=== PATIENT | male | born 1980 | race Caucasian/White ===

== ENCOUNTER 2022-10-22 18:52 | Emergency (ER) | payer OTHER, SELFPAY ==
--- NOTE | 2022-10-22 18:54 | XRR_ITS ---
PROCEDURE INFORMATION: Exam: XR Left Shoulder Exam date and time: 10/22/2022 6:59 PM Age: 42 years old Clinical indication: Injury or trauma; Other: Cut lt shoulder; Laceration; Left TECHNIQUE: Imaging protocol: Radiologic exam of the left shoulder. Views: 2 or more views. COMPARISON: No relevant prior studies available. FINDINGS: Bones/joints: There is no evidence of fracture or dislocation. The acromioclavicular joint is normal. The subacromial joint space is well-preserved. The glenohumeral joint is normal. No joint effusion is present. Soft tissues: There is a soft tissue laceration on top of the acromion, covered by dressing with probable gauze within the laceration (series 1001: Image 1001). XR/XR shoulder LT min 2V* [id number] IMPRESSION: 1. No acute fracture or dislocation. 2. Soft tissue laceration adjacent to the acromion. There is increased density within the laceration suggestive of gauze.
[2022-10-22 19:19] VITALS: BP 135/76; PULSE 86; RESP 14; TEMP 36.8; O2SAT 100; BMI 22.3
--- NOTE | 2022-10-22 19:42 | ED_ITS ---
HPI - Wound/Laceration General: Chief Complaint: Wound/Laceration Stated Complaint: Left shoulder Injury Time Seen by Provider: 10/22/22 19:41 History of Present Illness: 42-year-old male patient comes in today with injury to the left shoulder area. Patient was using a chainsaw today when he was cutting a small tree which caused the chainsaw to kick back and hit him in the left shoulder area. Patient has a laceration to the left shoulder that is into the dermal tissue but not involving the deep structures. Patient's tetanus is up-to-date. Patient moves extremities without difficulty. Patient appears nontoxic. Associated symptoms: Denies fever(s) or vomiting Review of Systems Const: Denies: fever(s) Card: Denies: chest pain Resp: Denies: dyspnea GI: Denies: vomiting : Denies: difficulty urinating Musc: Reports: extremity pain Skin/Breast: Reports: new lesions Neuro: Denies: headache(s) Physical Exam Const: COMMON NORMALS: alert HENMT: COMMON NORMALS: normocephalic HEAD & SCALP: normocephalic Neck/C-Spine: COMMON NORMALS: full ROM Resp: COMMON NORMALS: normal respiratory effort and clear to auscultation bilaterally AUSCULTATION: clear to auscultation bilaterally Cardio: COMMON NORMALS: regular rate and regular rhythm RATE: regular rate RHYTHM: regular rhythm Back/Pelvis: COMMON NORMALS: thoracic and lumbar spine normal to inspection Extremity: RIGHT UPPER EXTREMITY: Yes shoulder joint (4 cm laceration left upper shoulder) Right shoulder: Yes Right shoulder joint inspection exam, Yes palpation, Yes Right shoulder joint ROM exam and Yes Right shoulder joint neurovascular exam Neuro: SENSORIUM/ORIENTATION: Yes alert Skin: COMMON NORMALS: no rashes or lesions noted GENERAL SKIN EXAM: no rashes or lesions noted TRAUMA: laceration (Left upper shoulder) linear Procedures Laceration Laceration 1: Site: upper extremity Side (If applicable): left Size (cm): 4 Description: linear Local Anesthetic: lidocaine 1% Amount of anesthesia used (mL): 4 Pre-repair: wound explored and irrigated extensively Skin layer closed with: nylon Size (cm): 3-0 Number of sutures: 7 Technique: simple, interrupted (5) and horizontal mattress (2) Course Vital Signs: Vital signs: Vital Signs Temperature 98.2 F 10/22/22 19:19 Pulse Rate 86 04/24/23 19:19 Respiratory Rate 14 10/22/22 19:19 Blood Pressure 135/76 10/22/22 19:19 Pulse Oximetry 100 10/22/22 19:19 Oxygen Delivery Me thod Room Air 10/22/22 19:19 MDM - Wound/Laceration Medical Decision Making 42-year-old male patient comes in today with injury to the left upper shoulder. On exam patient has a 4 cm laceration to the upper shoulder/AC joint area. Wound cuts into the dermal tissue but not extending into the subcutaneous tissue. Differential diagnosis includes but not limited to fracture, laceration, foreign body. X-ray was unremarkable. Laceration was closed with sutures patient tolerated well. Reviewed exam with patient with recommendations for treatment and follow-up. Patient reported understanding. Lab Data Radiology Impressions Shoulder X-Ray 10/22/22 18:54 IMPRESSION: 1. No acute fracture or dislocation. 2. Soft tissue laceration adjacent to the acromion. There is increased density within the laceration suggestive of gauze. ADDENDUM: 10/22/222005 Findings were discussed with WENDIE CASSIDY at 10/22/2022 8:05 PM CDT. Discharge Plan Discharge Patient Disposition: Home Clinical Impression: Laceration of left shoulder Qualifiers: Encounter type: initial encounter Qualified Code(s): S41.012A - Laceration without foreign body of left shoulder, initial encounter Condition: Stable Discharge Orders: Discharge ED (Routine); Ordered 10/22/22 Ordered By: Tristen Higuera Referrals: Viraj Raya [Primary Care Provider] - Discharge Diet: Usual diet Discharge Activity: Increase activity as tolerated Patient Instructions: Care For Your Stitches (ED) Activity Restrictions/Additional Instructions: Keep wound clean and dry. Is important keep the wound as dry as possible for the first 48 hours. Sutures need to come out in 10 to 14 days. Monitor site for signs of infection such as fever, increasing redness and pain, purulent drainage. Return to ER for new concerns or worsening symptoms. Coding Level of Care Code ED [employer]r for [employer]
== END 2022-10-22 20:20 | disposition home or self-care (01) ==
PROVIDERS: Emergency Provider Nurse Practitioner Family; PCP Family Medicine
DX: S41.012A Laceration without foreign body of left shoulder, initial encounter (principal); W29.3XXA Contact with powered garden and outdoor hand tools and machinery, initial encounter
CPT/HCPCS: 12002; 73030; 99283

== ENCOUNTER → 2025-01-06 08:43 | Outpatient (BNVA) | payer OTHER, SELFPAY | PROVIDERS: PCP Family Medicine; Visit Provider Specialist | DX: M25.511 Pain in right shoulder (principal); M75.01 Adhesive capsulitis of right shoulder | CPT/HCPCS: 73030 ==

== ENCOUNTER 2025-02-09 09:21 | Outpatient (CLI) | payer OTHER, SELFPAY ==
--- NOTE | 2025-02-09 09:30 | MR_ITS ---
WS: [id number] MRI RIGHT SHOULDER HISTORY: right shoulder pain COMPARISON: Radiograph 01/06/2025 TECHNIQUE: Multiplanar sequences of the shoulder joint are submitted. Minimal narrowing of the AC joint. There is marrow edema in the more lateral segment of the acromion at the site of the deltoid attachment. There is edema surrounding the deltoid at its insertion site to the acromion. No definite os acromion is identified. There may be a very tiny os acromion. There is no displacement. Normal position of the biceps tendon. No rotator cuff muscle atrophy or edema. No tendon tears. No joint effusion. No labral abnormality. No significant narrowing of the glenohumeral joint. MR/MR shoulder RT wo con* [id number] IMPRESSION: 1. Marrow edema in the lateral portion of the acromion at the site of the delt oid attachment. There is edema within the deltoid insertion and marrow edema in the acromion. No definite os acromion is identified. There potentially could b e a very small os acromion which is unstable but nondisplaced. This can be furt her evaluated by CT for a small acromial apophysis. 2. Additional differentials to consider are a deltoid sprain/tear with partial avulsion from the acromion. 3. No rotator cuff tendon tear. 4. Minimal AC joint arthritis.
== END 2025-02-09 09:22 | disposition home or self-care (01) ==
LOC: RAD 09:22
PROVIDERS: PCP Family Medicine; Visit Provider Specialist
DX: M75.01 Adhesive capsulitis of right shoulder (principal); R60.0 Localized edema; M19.011 Primary osteoarthritis, right shoulder
CPT/HCPCS: 73221

== ENCOUNTER 2025-04-23 06:44 | Outpatient (CLI) | payer OTHER, SELFPAY ==
--- NOTE | 2025-04-23 06:45 | CT_ITS ---
WS: [id number] CT RIGHT SHOULDER, NONCONTRAST HISTORY: Pain for 8 months. No trauma. Technique: All CT scans at [facility] use at least one of these dose optimization techniques: automated exposure control; mA and/or kV adjustment per patient size (includes targeted exams where dose is matched to clinical indication); or iterative reconstruction. DLP: 293.64 mGy.cm COMPARISON: MRI 02/09/2025. Normal AC joint by CT. No os acromion. No osteolysis of the acromion. No significant subacromial impingement. Very mild narrowing of the AC joint. Normal appearance of the glenohumeral joint. No rotator cuff muscle atrophy. Sclerotic focus consistent with a bone island in the RIGHT humeral head. No soft tissue masses. No axillary adenopathy. Visualized RIGHT lung is clear. CT/CT shoulder RT wo con* [id number] IMPRESSION: 1. No os acromion or unfused apophysis identified. 2. No osteolysis of the acromion. 3. Mild narrowing of the AC joint.
== END 2025-04-23 06:45 | disposition home or self-care (01) ==
LOC: RAD 06:50
PROVIDERS: PCP Family Medicine; Visit Provider Specialist
DX: M25.511 Pain in right shoulder (principal); M19.011 Primary osteoarthritis, right shoulder
CPT/HCPCS: 73200